=== PATIENT | female | born 1995 | race Caucasian/White ===

== ENCOUNTER → 2016-10-22 | Outpatient (CLI) | payer BC ==
[~2016-10-22] MED LIST: HYDR-3714 PO
[2016-10-22 16:51] LABS: BASO % 0.2 %; BASO ABS # 0.03 K/uL (0-0.2); COMPLETE YES; EOS % 1.2 %; HEMATOCRIT 41.5 % (37-47); IG% 0.4 %; LYMPH % 18.3 %; LYMPH ABS # 3.11 K/uL (1.2-3.4); MEAN CELL VOLUME 88.1 fL (80-100); MEAN CORPUSCULAR HEMOGLOBIN 30.1 pg (25-34); MEAN CORPUSCULAR HGB CONC 34.2 g/dl (32-36); MEAN PLATELET VOLUME 10.1 fL (7.4-10.4); MONO % 10.7 %; NEUT % 69.2 %; PLATELET COUNT 327 K/uL (130-400); RED BLOOD COUNT 4.71 M/uL (4.2-5.4); WHITE BLOOD COUNT 17.03 K/uL (4.8-10.8)
== END | disposition home or self-care (01) ==
LOC: C.LAB1850 15:41
PROVIDERS: ATTEND Obstetrics & Gynecology
DX: Z34.93 Encounter for supervision of normal pregnancy, unspecified, third trimester (principal)

== ENCOUNTER → 2016-10-22 | Outpatient (CLI) | payer BC | END | disposition home or self-care (01) | LOC: C.PAPS 08:33 | PROVIDERS: ATTEND Obstetrics & Gynecology | DX: Z34.90 Encounter for supervision of normal pregnancy, unspecified, unspecified trimester (principal); R87.612 Low grade squamous intraepithelial lesion on cytologic smear of cervix (LGSIL) ==

== ENCOUNTER → 2016-10-22 | Outpatient (CLI) | payer BC ==
[2016-10-22 18:16] LABS: URINE APPEARANCE CLEAR (CLEAR); URINE BILIRUBIN NEG (NEG); URINE COLOR YELLOW; URINE NITRITE NEG (NEG); URINE SPECIFIC GRAVITY 1.011 (1.000-1.030); UROBILINOGEN NEG (NEG)
[2016-10-22 18:18] LABS: MANUAL MICROSCOPIC REQUIRED? NO; REVIEW REQ? NO
[2016-10-24 15:25] LABS: CHLAMYDIA TRACH RNA*** NOT DETECTED (NOT DETECTED); GC (NEIS GONORRHOEAE)RNA** NOT DETECTED (NOT DETECTED)
== END | disposition home or self-care (01) ==
LOC: C.LABSPEC 17:50
PROVIDERS: ATTEND Obstetrics & Gynecology
DX: Z34.93 Encounter for supervision of normal pregnancy, unspecified, third trimester (principal)

== ENCOUNTER → 2016-12-18 | Outpatient (CLI) | payer BC ==
[2016-12-18 18:26] LABS: GTGD 50 Grams
== END | disposition home or self-care (01) ==
LOC: C.LAB1850 15:03
PROVIDERS: ATTEND Obstetrics & Gynecology
DX: Z34.92 Encounter for supervision of normal pregnancy, unspecified, second trimester (principal)

== ENCOUNTER → 2017-03-12 | Outpatient (CLI) | payer BC ==
[2017-03-12 17:13] LABS: HEMATOCRIT 32.1 % (37-47)
[2017-03-12 18:11] LABS: URINE APPEARANCE CLEAR (CLEAR); URINE BILIRUBIN NEG (NEG); URINE COLOR YELLOW; URINE EPITHELIAL CELL AUTO 0-5 /lpf (0-5); URINE NITRITE NEG (NEG); URINE SPECIFIC GRAVITY 1.012 (1.000-1.030); UROBILINOGEN NEG (NEG)
[2017-03-12 18:47] LABS: GTGD 50 Grams
[2017-03-12 18:50] LABS: MANUAL MICROSCOPIC REQUIRED? NO; REVIEW REQ? NO
== END | disposition home or self-care (01) ==
LOC: C.LAB1850 15:56
PROVIDERS: ATTEND Obstetrics & Gynecology
DX: Z34.93 Encounter for supervision of normal pregnancy, unspecified, third trimester (principal)

== ENCOUNTER → 2017-03-24 | Outpatient (CLI) | payer BC | END | disposition home or self-care (01) | LOC: C.LAB1850 08:21 | PROVIDERS: ATTEND Obstetrics & Gynecology | DX: O28.1 Abnormal biochemical finding on antenatal screening of mother (principal) ==

== ENCOUNTER → 2017-05-07 | Outpatient (CLI) | payer BC | END | disposition home or self-care (01) | LOC: C.LABSPEC 17:29 | PROVIDERS: ATTEND Obstetrics & Gynecology | DX: Z34.93 Encounter for supervision of normal pregnancy, unspecified, third trimester (principal) ==

== ENCOUNTER 2017-05-31 21:39 | Inpatient (IN) | payer BC ==
[~2017-05-31] VITALS: Ht 175.3 cm; Wt 109.4 kg
[2017-05-31 23:18] VITALS: Ht 175.3 cm; Wt 109.4 kg
[2017-05-31] MEDS ORDERED: PRENTAB26 PO (23:20)
[2017-06-01] MEDS ORDERED: LACTATED RINGER'S 1000ML 1,000 ML IV PRN (00:09)
[2017-06-01 00:28] LABS: HEMATOCRIT 33.4 % (37-47); HEMOGLOBIN 11.5 g/dL (12.0-16.0); MEAN CELL VOLUME 86.1 fL (80-100); MEAN CORPUSCULAR HEMOGLOBIN 29.6 pg (25-34); MEAN CORPUSCULAR HGB CONC 34.4 g/dl (32-36); MEAN PLATELET VOLUME 10.6 fL (7.4-10.4); PLATELET COUNT 301 K/uL (130-400); RED CELL DISTRIBUTION WIDTH CV 13.5 % (11.5-14.5); WHITE BLOOD COUNT 24.27 K/uL (4.8-10.8)
[2017-06-01 00:47] LABS: ALBUMIN 2.5 gm/dl (3.4-5.0); ALT/SGPT 22 U/L (12-78); AST/SGOT 26 U/L (15-37); BLOOD UREA NITROGEN 4 mg/dl (7-18); CALCIUM 8.8 mg/dl (8.5-10.1); CARBON DIOXIDE 21 mmol/L (21-32); CREATININE 0.61 mg/dl (0.60-1.20); GLUCOSE 88 mg/dl (70-99); POTASSIUM 3.3 mmol/L (3.5-5.1); SODIUM 135 mmol/L (136-145)
[2017-06-01 00:50] LABS: ALKALINE PHOSPHATASE 323 U/L (45-117); TOTAL PROTEIN 7.5 gm/dl (6.4-8.2)
[2017-06-01] MEDS ORDERED: NALOXONE HCL INJ 1 MG in SODIUM CHLORIDE 0.9% 1000ML 1,000 ML IV PRN (01:32)
[2017-06-01] MEDS ORDERED: LACTATED RINGER'S 1000ML 500 ML IV PRN (01:32)
[2017-06-01] MEDS ORDERED: BUPIVACAINE 0.25% 30 ML VIAL ONE (01:36)
[2017-06-01] MEDS ORDERED: EpHEDrine SULFATE INJ 50 MG/ML AMP ONE (01:36)
[2017-06-01] MEDS ORDERED: FENTANYL 2MCG/ML ROPIV 1.25MG/ML 100ML BAG EPI ONE (01:37)
[2017-06-01] MEDS ORDERED: FENTANYL CITRATE INJ 50 MCG/1 ML 2 ML VIAL ONE (01:37)
[2017-06-01] MEDS ORDERED: NALOXONE HCL INJ 0.4 MG/1 ML VIAL/CARP IV PRN (01:45)
[2017-06-01] MEDS ORDERED: EpHEDrine SULFATE INJ 50 MG/ML AMP IV PRN (01:45)
[2017-06-01] MEDS ORDERED: ONDANSETRON INJ 2 MG/ML 2 ML VIAL IV PRN (01:45)
[2017-06-01] MEDS ORDERED: DiphenhydrAMINE HCL 50 MG/ML VIAL IV PRN (01:45)
[2017-06-01] MEDS ORDERED: NALBUPHINE HCL INJ 10 MG/ML 1ML AMP IV PRN (01:45)
[2017-06-01] MEDS: LACTATED RINGER'S 1000ML 1,000 ML IV SCH ×2 (02:16→07:01)
[2017-06-01] MEDS: FENTANYL 2MCG/ML ROPIV 1.25MG/ML 100ML BAG EPI PRN ×2 (07:01→07:06)
[2017-06-01] MEDS ORDERED: OXYTOCIN 30 UNITS/500ML NSS IV ONE (07:37)
[2017-06-01] MEDS ORDERED: OXYTOCIN 30 UNITS/500ML NSS IV PRN (08:30)
[2017-06-01] MEDS ORDERED: HYDROCORTISONE ACETATE 25 MG SUPP PR PRN (08:30)
[2017-06-01] MEDS ORDERED: BENZOCAINE 20% AER SPR 82.5 GM CAN EXT PRN (08:30)
[2017-06-01] MEDS ORDERED: SUPERCREAM 0.870 % 15GM JAR EXT PRN (08:30)
[2017-06-01] MEDS ORDERED: OXYCODONE/ACETAMINOPHEN 5-325 TAB PO PRN (08:30)
[2017-06-01] MEDS ORDERED: LANOLIN OINT EXT PRN (08:30)
--- NOTE | 2017-06-01 08:35 | Anesthesia Procedure Note ---
Anesthesia Epidural Removal Nt Date & Time Jun 01, 2017 at 08:35 Vital Signs Pain Intensity: 0.0 Notes Mental Status: alert / awake / arousable, participated in evaluation Nausea / Vomiting: adequately controlled Pain: adequately controlled Airway Patency, RR, SpO2: stable & adequate BP & HR: stable & adequate Hydration State: stable & adequate Neuraxial Anesthesia: was administered Anesthetic Complications: no major complications apparent, pt satisfied with anesthetic care Epidural: removed without complications, with tip intact
--- NOTE | 2017-06-01 09:49 | DELIVERY SUMMARY ---
DATE OF OPERATION: 06/01/2017 PREDELIVERY DIAGNOSES: 1. A 21-year-old G1, P0 at 39 weeks and 5 days. 2. Spontaneous labor. POSTDELIVERY DIAGNOSES: Same plus bilateral sulcal vaginal tears with arterial bleed. PROCEDURES: Spontaneous vaginal delivery and repair of bilateral sulcal vaginal tears. ESTIMATED BLOOD LOSS: 500 mL. FINDINGS: Viable male , Apgars 8 and 9, weight pending. Please see nursery record. Nuchal cord x1. Cord also wrapped around the body. Large amount of meconium. Placenta was meconium staining. DESCRIPTION OF DELIVERY: The patient had presented with regular contractions and spontaneous labor. She was admitted. She then ruptured the membranes for large amount of meconium stained fluids. She progressed to complete with epidural anesthesia. She then began to push. She spontaneously vaginally delivered a viable male from the cephalic presentation with the head in left occiput anterior position. The head delivered followed by the anterior and then posterior shoulder followed by the body. There was a nuchal cord x1 and cord wrapped around the body that the baby was delivered through. The baby was placed on the mother's abdomen. The cord was doubly clamped and cut. A spontaneous cry was heard. The baby was handed off to the awaiting nursery team due to large amount of meconium. A cord segment was obtained for cord gases. Cord blood was obtained. Placenta was then delivered spontaneously intact with a 3-vessel cord. Of note, there was a meconium staining of the membrane. The uterus became firm. Pitocin was given. The uterus and vagina were swept off all clots and debris. The cervix, vagina and perineum were inspected and bilateral vaginal sulcal tears were noted with an arterial pumping bleed in the right vaginal sulcal tear. This was repaired with multiple [id number] sutures of 3-0 Vicryl in order to obtain hemostasis. Excellent hemostasis was eventually achieved. All sponge, instruments and needle counts were correct at the conclusion of the case x2. The patient and the baby recovered in the room in stable and good condition. I attest to the content of the Intraoperative Record and any orders documented therein. Any exception s are noted below.
[2017-06-01 13:00] VITALS: BP 135/84; PULSE 110; TEMP 36.9
[2017-06-01 15:25] VITALS: BP 144/77; PULSE 111; TEMP 36.8
[2017-06-01] MEDS: DOCUSATE SODIUM 100 MG CAP PO SCH (19:32)
[2017-06-01] MEDS: IBUPROFEN 600 MG TAB PO PRN (19:34)
[2017-06-01 19:45] VITALS: BP 133/84; PULSE 94; TEMP 36.5
[2017-06-01 23:10] VITALS: BP 127/78; PULSE 94; TEMP 36.8
[2017-06-02 04:00] VITALS: BP 127/76; PULSE 96; TEMP 36.4
[2017-06-02 06:13] LABS: BASO % 0.2 %; BASO ABS # 0.04 K/uL (0-0.2); EOS % 1.7 %; EOS ABS # 0.32 K/uL (0-0.5); HEMATOCRIT 27.5 % (37-47); IG# 0.15 K/uL (0.00-0.02); LYMPH % 19.8 %; MEAN CELL VOLUME 87.3 fL (80-100); MEAN CORPUSCULAR HEMOGLOBIN 28.6 pg (25-34); MEAN CORPUSCULAR HGB CONC 32.7 g/dl (32-36); MEAN PLATELET VOLUME 10.7 fL (7.4-10.4); MONO % 8.7 %; MONO ABS # 1.68 K/uL (0.11-0.59); NEUT % 68.8 %; NEUT ABS # 13.22 K/uL (1.4-6.5); PLATELET COUNT 242 K/uL (130-400); RED CELL DISTRIBUTION WIDTH CV 13.5 % (11.5-14.5); RED CELL DISTRIBUTION WIDTH SD 43.2 fL (36.4-46.3); WHITE BLOOD COUNT 19.21 K/uL (4.8-10.8)
[2017-06-02 07:25] VITALS: BP 133/74; PULSE 85; TEMP 36.4
[2017-06-02] MEDS: IBUPROFEN 600 MG TAB PO PRN (08:07)
--- NOTE | 2017-06-02 08:14 | OB/GYN Progress Note ---
CORE LOADER Progress Note Date of Service Jun 02, 2017. Subjective conversation w/ patient, physical exam, chart review, lab review Ambulation: ambulating normally Voiding: no voiding problems Passing Gas: Yes Diet Tolerance: Regular Diet Lochia: Moderate Feeding Type: Bottle Feeding Pain: well controlled with Motrin Review of Systems Constitutional: No fever, No chills Respiratory: No cough, No shortness of breath Cardiac: No chest pain, No palpitations Abdomen: No pain, No nausea, No vomiting Female : No dysuria Objective Vital Signs Date Time Temp Pulse Resp B/P (MAP) Pulse Ox O2 Delivery O2 Flow Rate FiO2 06/02/17 07:25 36.4 85 16 133/74 (93) Room Air 06/02/17 04:00 36.4 96 16 127/76 (93) Room Air 06/01/17 23:10 36.8 94 18 127/78 (94) Room Air 06/01/17 23:10 Room Air 06/01/17 19:45 36.5 94 16 133/84 (100) Room Air 06/01/17 15:45 Room Air 06/01/17 15:25 36.8 111 20 144/77 (99) Room Air 06/01/17 13:00 Room Air 06/01/17 13:00 36.9 110 20 135/84 Physical Exam General Appearance: WELL-APPEARING, WD/WN, NO APPARENT DISTRESS Respiratory/Chest: lungs clear, normal breath sounds Cardiovascular: regular rate, rhythm, no murmur Abdomen: non tender Fundus: Firm, Relation to Umbilicus (one digit below ) Extremities: no calf tenderness Laboratory Results Last 24 Hours Test 06/02/17 05:41 White Blood Count 19.21 K/uL Red Blood Count 3.15 M/uL Hemoglobin 9.0 g/dL Hematocrit 27.5 % Mean Corpuscular Volume 87.3 fL Mean Corpuscular Hemoglobin 28.6 pg Mean Corpuscular Hemoglobin Concent 32.7 g/dl Platelet Count 242 K/uL Mean Platelet Volume 10.7 fL Neutrophils (%) (Auto) 68.8 % Lymphocytes (%) (Auto) 19.8 % Monocytes (%) (Auto) 8.7 % Eosinophils (%) (Auto) 1.7 % Basophils (%) (Auto) 0.2 % Neutrophils # (Auto) 13.22 K/uL Lymphocytes # (Auto) 3.80 K/uL Monocytes # (Auto) 1.68 K/uL Eosinophils # (Auto) 0.32 K/uL Basophils # (Auto) 0.04 K/uL RDW Standard Deviation 43.2 fL RDW Coefficient of Variation 13.5 % Immature Granulocyte % (Auto) 0.8 % Immature Granulocyte # (Auto) 0.15 K/uL Assessment and Plan Post- Day Number: 2 Continue Routine Care: 21 yo female now 1 delivered vaginally 06/01 7:51 @39 wks GBS-/O+/RI.Pt is doing well clinically. Patient had some elevated BP 144/77 following delivery. Reading in the yesterday evening were WNL. Plan; 1. Discussed discharge instructions with the patient. 2. follow up and BP follow up in the clinic Resident Physician Supervision Note: I was present with Dr. Duran during the history and exam. I discussed the case with the resident and agree with the findings and plan as documented in the note. Any exceptions or clarifications are listed here: PPD#1 doing well, requesting discharge home. Plans for DC home today. Documented By: Amy Patricio
[2017-06-02] MEDS: DOCUSATE SODIUM 100 MG CAP PO SCH (08:15)
--- NOTE | 2017-06-02 08:17 | Discharge Instructions ---
Discharge Instructions Date of Service Jun 02, 2017. Admission Reason for Admission: LABOR Discharge Discharge Diagnosis / Problem: vaginal delivery Discharge Goals Goal(s): Routine recovery after delivery Medications Continue Dispensed Medications: supercream, dermaplast, tucks, lansinoh Activity Recommendations Activity Limitations: per Instructions/Follow-up section . Instructions / Follow-Up Instructions / Follow-Up ACTIVITY RECOMMENDATIONS: * Gradual return to full activity over the next 2-3 weeks. * No lifting - nothing heavier than baby over the next 2-3 weeks. * Do not engage in vigorous exercise, sexual activity or sports until cleared by your physician. * Do not drive or operate any motorized equipment until cleared by your physician. * You may shower/bathe daily. MEDICATIONS: For discomfort or pain, you may use Acetaminophen (Tylenol), Ibuprofen (Advil), or Naproxen (Aleve) following the package directions. For constipation you may use Colace following the package directions. BREAST CARE: If you are not breast feeding: * Wear a supportive bra 24 hours a day for one to two weeks. * Avoid stimulating your breasts and nipples as much as possible during the first few weeks after delivery. * When taking a shower, have the warm water hit your back, not breasts. * When your breasts feel full, apply ice packs. Usually three to four times a day helps ease the discomfort. * Take a mild pain medication (Tylenol / Motrin) when you are uncomfortable. If breast feeding: * Use breast milk to lubricate nipples. Lansinoh cream may be used for sore nipples. You do not need to remove cream prior to breast feeding. If using a different brand of cream, check the label for directions regarding removal of cream prior to nursing. * Wear a supportive bra. * If having problems with breasts or breast feeding, call a industrial rehabilitation consultant or your health care provider. EPISIOTOMY CARE: After delivery, if you have an episiotomy (stitches), the following steps will ease discomfort and aid healing. * For the first 24 hours after delivery, place ice packs next to your episiotomy to help reduce swelling. * After the first 24 hour-period, sitz baths, either portable or in the tub, are suggested. A shower with a shower arm sprayed over the episiotomy may be comforting. * Kyara care should be done after each voiding and bowel movement. Squirt warm water from a plastic bottle over the perineum (region of the body between the anus and urinary opening) and pat dry. * Use Dermoplast to ease discomfort. Shake container. [place] directly over the episiotomy. Place a Tucks on a clean sanitary pad next to your episiotomy. SPECIAL CARE INSTRUCTIONS: When you are discharged from the hospital, it is important for you to follow the instructions listed below: * During the first week at home, you should be able to care for yourself and your baby. In addition, the usual light household activities are encouraged. * Limit your activities to the way you feel. Do not try to clean the house or move furniture. Be sensible. * If you actively engage in sports and have done so up until the time of your delivery, you may resume these activities as soon as you feel able. This may take up to one month or even longer. Use good judgment. * Continue to take your vitamins for at least six weeks after the of your baby. * Your diet need not be limited unless you were on a special diet before your delivery. Breast-feeding mothers need around 2500 calories per day and at least 64-80 ounces of fluid per day (8 to 10 glasses). * You should eat foods from the four major food groups. Crash diets or fad diets are to be avoided. Eating lean meats, fresh fruits and vegetables, low-fat dairy products, high fiber foods and a regular exercise program, will help you get back to your pre- weight without putting your health at risk. * Constipation is sometimes a problem after delivery. Take a mild laxative as needed. If breast feeding, Milk of Magnesia is acceptable to use. You may use a suppository or Fleets enema if no episiotomy. * A daily shower or tub bath is suggested. Be sure to thoroughly and gently dry the perineum. * A bloody vaginal discharge will usually continue until around four weeks post . A small amount of bleeding may continue for as long as six weeks. Vaginal discharge changes from the bright red bleeding after delivery to pink then brownish and finally yellowish-pink before becoming white and disappearing. * Bleeding may increase with activity. Your first period may come in 4-8 weeks. If you are breast feeding, your period may be delayed even longer. * [place] (sex) can begin whenever both you and your partner feel comfortable and do not have any form of genital infection. It is recommended that you wait at least six weeks for internal and external healing to occur. If you have questions, please talk to your health care practitioner. A condom should be used to prevent infection and . * Foreplay, gentle intercourse and lubrication is very important the first several times to prevent pain. A water-based lubricant such as K-Y jelly or Astroglide may be used. * If you have RH negative blood and your baby is RH positive, you will receive RHOGAM by injection prior to discharge. The nurse will give you a card to keep with you that has the date and place that you received RHOGAM after delivery. * During your care, you had a Rubella screen done to check for the presence of rubella antibodies in your blood. If your test was negative, you will receive a Rubella vaccine prior to discharge. This vaccine may cause a fever, soreness at the injection site and flu-like symptoms. If these symptoms persist, notify your health care practitioner. is not advised for one month after a Rubella vaccine. * Verbalizes understanding of car seat law as reviewed with patient nursing. * Car Seat hand-out given and reviewed with patient by nursing. * Shaken baby information reviewed with patient by nursing. Call you doctor if: * Heavy bleeding (saturating several pads an hour) or passing clots the size of your fist. * A fever >101 degrees F (38.3 degrees C) on two occasions four hours apart and /or chills. * Unusual pain in the pelvic or vaginal areas. * "Baby Blues" lasting longer than two weeks. If you have any questions or concerns, call your health care practitioner at . FOLLOW UP VISIT: * Please call the office at to schedule a 6 week examination. It is important you keep this appointment. It is important for you to make arrangements for either yearly or twice yearly check-ups thereafter. Current Hospital Diet Patient's current hospital diet: Regular OB Diet Discharge Diet Recommended Diet: Regular OB Diet Pending Studies Studies pending at discharge: no Medical Emergencies . Who to Call and When: Medical Emergencies: If at any time you feel your situation is an emergency, please call 911 immediately. . Non-Emergent Contact Non-Emergency issues call your: Foundation Stage Teacher . . "Provider Documentation" section prepared by Raymond Duran. . VTE Core Measure Inpt VTE Proph given/why not?: Treatment not indicated
[2017-06-02 14:15] VITALS: BP_DIAS 74; PULSE 85; TEMP 36.4
[2017-06-02] MEDS ORDERED: BISACODYL 5 MG TABEC PO SCH (20:00)
[2017-06-03] MEDS ORDERED: BISACODYL 10 MG SUPP PR PRN (07:00)
== END 2017-06-02 14:15 | disposition home or self-care (01) | DRG 775 ==
LOC: C.OPB 21:39 → C.LD 21:39 → C.OPB 06-01 00:11 → C.LD 06-01 00:11 → C.OBG 06-01 13:05 → EDSTATUS 06-02 21:38
PROVIDERS: ADMIT Obstetrics & Gynecology; ATTEND Obstetrics & Gynecology
PROC: 10E0XZZ Delivery of Products of Conception, External Approach (ICD-10-PCS; principal; 2017-06-01)
PROC: 0UQG7ZZ Repair Vagina, Via Natural or Artificial Opening (ICD-10-PCS; principal; 2017-06-01)
DX: O26.893 Other specified pregnancy related conditions, third trimester (principal); R03.0 Elevated blood-pressure reading, without diagnosis of hypertension; O69.81X0 Labor and delivery complicated by cord around neck, without compression, not applicable or unspecified; O77.0 Labor and delivery complicated by meconium in amniotic fluid; O71.4 Obstetric high vaginal laceration alone; Z3A.39 39 weeks gestation of pregnancy; Z37.0 Single live birth

== ENCOUNTER → 2017-07-11 | Outpatient (CLI) | payer OTHER ==
--- NOTE | 2017-07-11 08:58 | DIAGNOSTIC IMAGING REPORT ---
ULTRASOUND RIGHT UPPER QUADRANT ABDOMEN CLINICAL HISTORY: Cholelithiasis. COMPARISON STUDY: No priors. TECHNIQUE: Real-time, grayscale, and color flow sonography of the right upper quadrant of the abdomen was performed. Images are reviewed in the transverse and longitudinal planes. FINDINGS: Liver: The liver is normal in size and echotexture. There is no intrahepatic biliary ductal dilatation. The main portal vein is patent. Gallbladder: There are numerous small shadowing gallstones identified. There is no gallbladder wall thickening or pericholecystic fluid. A sonographic Medeiros's sign is reportedly absent. The common bile duct measures up to 0.6 cm in diameter. Pancreas: Not well visualized due to overlying bowel gas. Right kidney: Survey images of the right kidney demonstrate normal size and echotexture. There is no hydronephrosis. Ascites: None. IMPRESSION: Cholelithiasis without sonographic evidence of acute cholecystitis. Electronically signed by: Med Peñaloza M.D. 07/11/2017 8:57 AM Dictated Date/Time: 07/11/2017 8:54 AM
== END | disposition home or self-care (01) ==
LOC: C.ULTR 08:32
PROVIDERS: ATTEND Family Medicine
DX: K80.20 Calculus of gallbladder without cholecystitis without obstruction (principal); Z91.040 Latex allergy status

== ENCOUNTER → 2017-07-17 | Outpatient (CLI) | payer OTHER | END | disposition home or self-care (01) | LOC: C.LAB1850 14:18 | PROVIDERS: ATTEND Obstetrics & Gynecology | DX: Z30.40 Encounter for surveillance of contraceptives, unspecified (principal) ==

== ENCOUNTER 2017-08-11 07:40 | Day surgery (SDC) | payer OTHER ==
[2017-08-08 08:01] VITALS: BMI 33.0
[~2017-08-11] VITALS: Ht 172.7 cm; Wt 97.7 kg
[~2017-08-11 07:40] MED LIST changes: +ATROPINE SULFATE 0.1 MG/ML 5ML SYR IV PRN; +CEFOXITIN IV 2,000 MG in DEXTROSE 5% 50ML 50 ML IV SCH; +EpHEDrine SULFATE INJ 50 MG/ML AMP IV PRN; -HYDR-3714 PO; +HYDROmorphone INJ 1 MG/ML SYR IV PRN; +LACTATED RINGER'S 1000ML 1,000 ML IV SCH; +ONDANSETRON INJ 2 MG/ML 2 ML VIAL IV PRN; +PHENYLEPHRINE 100MCG/ML 5ML SYR IV PRN; +PROMETHAZINE HCL INJ 12.5 MG in SODIUM CHLORIDE 0.9% 50ML 50 ML IV PRN
[2017-08-11 07:57] VITALS: BP 117/71; PULSE 73; TEMP 37.3; O2SAT 98; Ht 172.7 cm; Wt 97.7 kg
[2017-08-11] MEDS ORDERED: FENTANYL CITRATE INJ 50 MCG/1 ML 2 ML VIAL ONE ×2 (09:12)
[2017-08-11] MEDS ORDERED: MIDAZOLAM HCL 1 MG/ML 2ML VIAL ONE (09:12)
[2017-08-11] MEDS ORDERED: LIDOCAINE HCL 2% 2 ML VIAL (20MG/ML) ONE (09:20)
[2017-08-11] MEDS ORDERED: ROCURONIUM BROMIDE 10 MG/ML 5 ML VIAL IV ONE (09:20)
[2017-08-11] MEDS ORDERED: PROPOFOL IV EMULSION 10 MG/ML 20 ML VIAL IV ONE (09:20)
--- NOTE | 2017-08-11 09:30 | History & Physical Bridge Note ---
H&P Re-Evaluation Bridge Note: I have examined the patient, reviewed the History & Physical and in the interval since the performance of the History & Physical I have noted the following changes of clinical significance: No changes noted
[2017-08-11] MEDS ORDERED: BUPIVACAINE 0.5 % 5 MG/1 ML MPF 30ML VIAL ONE (09:58)
[2017-08-11] MEDS ORDERED: GLYCOPYRROLATE INJ 0.2 MG/ML VIAL ONE (10:42)
[2017-08-11] MEDS ORDERED: ONDANSETRON INJ 2 MG/ML 2 ML VIAL ONE (10:42)
[2017-08-11] MEDS ORDERED: DEXAMETHASONE SOD INJ 4 MG/ML VIAL ONE (10:42)
[2017-08-11] MEDS ORDERED: NEOSTIGMINE METHYLSULFATE 5 MG/5 ML SYR ONE (10:42)
--- NOTE | 2017-08-11 11:05 | [facility] Post Operative Brief Note ---
Immediate Operative Summary Operative Date Aug 11, 2017. Pre-Operative Diagnosis Symptomatic cholelithiasis Post-Operative Diagnosis Same as preop Procedure(s) Performed Laparoscopic cholecystectomy Surgeon Dr. Case Vendor Representatives Surgeon(s) Willis Red PA-C Estimated Blood Loss 3 cc Findings Consistent with Post-Op Diagnosis window of safety obtained Specimens A: gallbladder and contents Drains None Anesthesia Type General Complication(s) none Disposition Accompanied Pt To Recover: no Disposition: Recovery Room / PACU
--- NOTE | 2017-08-11 11:15 | [facility] Operative Report ---
Operative Report Operative Date Aug 11, 2017. Pre-Operative Diagnosis Symptomatic cholelithiasis Post-Operative Diagnosis Same Procedure(s) Performed Laparoscopic cholecystectomy Surgeon Dr. Case Hand Splitter Surgeon(s) Willis Red PA-C Estimated Blood Loss 3 cc Findings Critical view of safety obtained, cystic duct and artery doubly clipped and divided, mild cholecystitis Specimens A: gallbladder and contents Drains None Anesthesia General Complication(s) None Disposition Recovery Room / PACU Indications 21-year-old female with symptomatic cholelithiasis, plan for laparoscopic cholecystectomy with possible cholangiogram. The risks of the procedure were discussed, all questions were answered, and the patient agreed to proceed with surgery as planned. Description of Procedure The patient was properly identified, consented, and taken to the operating room where she was placed in the supine position. General endotracheal anesthesia was induced. SCDs and a safety belt were placed. Preoperative antibiotics were administered. The patient's abdomen was prepped and draped in the standard sterile fashion. A surgical timeout was performed and all parties were in agreement that this was the correct patient and procedure to be performed and we continued as planned. An incision was made superior and to the left of the umbilicus overlying the rectus muscle and the Veress needle was inserted. Saline drop test confirmed entry into the peritoneum. The abdomen was insufflated with carbon dioxide which the patient tolerated without incident. The abdomen was then entered using the Optiview technique and a 5 mm trocar. The laparoscope was inserted and no damage from initial trocar or Veress needle placement was noted, no gross abnormalities were noted within the 4 quadrants of the abdomen. An 11 mm port was placed in the subxiphoid position and two 5 mm ports were then placed in the right subcostal position. The patient was placed in reverse Trendelenburg position and rotated towards the left. The dome of the gallbladder was retracted towards the left upper quadrant and the infundibulum was retracted toward the right lower quadrant revealing Calot' s triangle. The gallbladder was mildly inflamed. Peritoneal attachments were taken down with electrocautery and blunt dissection. The cystic duct and artery were circumferentially dissected. A window of safety was obtained showing the cystic duct entering the gallbladder with no aberrant structures noted. The cystic duct and artery were doubly clipped and divided. The gallbladder was then lifted off the gallbladder fossa with electrocautery. The gallbladder was placed in an Endo Catch bag and removed through the umbilical port site. The right upper quadrant was irrigated and hemostasis was found to be good. 5 mm trochars were removed under direct visualization and the abdomen was allowed to collapse. The umbilical port site fascia was closed with 0 Vicryl suture. The wound was irrigated, and the skin of all ports was closed with 4-0 Monocryl subcuticular sutures. Dermabond was placed over the wounds. The patient was extubated in the operating room and taken to the PACU where she recovered without apparent incident. All sponge, instrument and needle counts were correct at the conclusion of the procedure. The patient tolerated the procedure well. The physician's farm assistant was present and scrubbed for the entire to the case. He was essential in positioning the patient, prepping and draping, entry into the abdomen, retraction and exposure, driving a laparoscope, removal of the gallbladder, closure of the incisions, and placement of the dressings. I attest to the content of the Intraoperative Record and any orders documented therein. Any exceptions are noted below.
[2017-08-11] MEDS ORDERED: OXYC-57 PO (11:18)
[2017-08-11] MEDS ORDERED: LACTATED RINGER'S 1000ML 1,000 ML IV SCH (11:20)
[2017-08-11] MEDS: FENTANYL CITRATE INJ 50 MCG/1 ML 2 ML VIAL IV PRN ×4 (11:20→11:38)
--- NOTE | 2017-08-11 11:20 | Discharge Instructions ---
Discharge Instructions Date of Service Aug 11, 2017. Visit Reason for Visit: Cholelithiasis Discharge Discharge Diagnosis / Problem: laparoscopic cholecystectomy Discharge Goals Goal(s): Decrease discomfort Activity Recommendations Activity Limitations: as noted below Lifting Limitations: no more than 10 pounds Shower/Bathe: no limitations Driving or Machine Use: resume 3 days after discharge Anesthesia . Post Anesthesia Instructions: If you have had General Anesthesia or IV Sedation: * Do not drive today. * Resume driving when surgeon permits. * Do not make important decisions or sign legal documents today. * Call surgeon for: 1. Temperature elevations greater than 101 degrees F. 2. Uncontrollable pain. 3. Excessive bleeding. 4. Persistent nausea and vomiting. 5. Medication intolerance (nausea, vomiting or rash). * For nausea and vomiting use only clear liquids such as: tea, soda, bouillon until nausea subsides, then gradually increase diet as tolerated. * If you have any concerns or questions, call your surgeon's office. If physician is unavailable and it is an emergency, call 911 or go to the nearest emergency room. . Instructions / Follow-Up Instructions / Follow-Up Dr. Case in 1-2 weeks as planned, call [phone] if you have any questions or do not have an appt Diet Recommendations Recommended Home Diet: no limitations Procedures Procedures Performed: Laparoscopic cholecystectomy Pending Studies Studies pending at discharge: no Medical Emergencies . Who to Call and When: Medical Emergencies: If at any time you feel your situation is an emergency, please call 911 immediately. . Non-Emergent Contact Non-Emergency issues call your: Surgeon Call Non-Emergent contact if: you have a fever, temperature is above 101.5, your pain is not controlled, wound has increased redness, you have any medication questions . . "Provider Documentation" section prepared by Kumar Morales. .
[2017-08-11] MEDS ORDERED: MoRPHine SULFATE 2 MG/ML CARP IV PRN (11:30)
[2017-08-11] MEDS ORDERED: OXYCODONE/ACETAMINOPHEN 5-325 TAB PO PRN (11:30)
[2017-08-11] MEDS ORDERED: ONDANSETRON INJ 2 MG/ML 2 ML VIAL IV PRN (11:30)
--- NOTE | 2017-08-11 11:56 | Anesthesiology Progress Note ---
Anesthesia Post Op Note Date & Time Aug 11, 2017 at 11:56 Vital Signs Pain Intensity: 4 Vital Signs Past 12 Hours Date Time Temp Pulse Resp B/P (MAP) Pulse Ox O2 Delivery O2 Flow Rate FiO2 08/11/17 11:45 74 14 13/85 93 Room Air 08/11/17 11:35 58 14 134/82 100 Oxymask 10 08/11/17 11:25 85 14 148/95 98 Oxymask 10 08/11/17 11:15 36.0 121 11 166/113 95 Oxymask 10 08/11/17 07:57 37.3 73 20 117/71 (86) 98 Room Air Notes Mental Status: alert / awake / arousable, participated in evaluation Pt Amnestic to Procedure: Yes Nausea / Vomiting: adequately controlled Pain: adequately controlled Airway Patency, RR, SpO2: stable & adequate BP & HR: stable & adequate Hydration State: stable & adequate Anesthetic Complications: no major complications apparent
[2017-08-11 12:05] VITALS: BP 125/87; PULSE 69; TEMP 36.9; O2SAT 95
[2017-08-11 12:30] VITALS: BP 132/83; PULSE 77; TEMP 36.5; O2SAT 95
[2017-08-11] MEDS ORDERED: OXYCODONE/ACETAMINOPHEN 5-325 TAB ONE (12:35)
[2017-08-11 12:50] VITALS: BP 122/76; PULSE 67; TEMP 36.4; O2SAT 97
== END 2017-08-11 13:06 | disposition home or self-care (01) ==
LOC: C.ACU 07:40
PROVIDERS: ATTEND Surgery
DX: K80.50 Calculus of bile duct without cholangitis or cholecystitis without obstruction (principal); J45.909 Unspecified asthma, uncomplicated; E66.9 Obesity, unspecified; Z91.040 Latex allergy status; Z98.818 Other dental procedure status; Z98.890 Other specified postprocedural states; F17.200 Nicotine dependence, unspecified, uncomplicated; Z82.49 Family history of ischemic heart disease and other diseases of the circulatory system; Z68.33 Body mass index [BMI] 33.0-33.9, adult